=== PATIENT | female | born 1995 | race African-American/Black ===

== ENCOUNTER 2021-01-09 21:18 | Emergency (ER) | payer OTHER ==
[~2021-01-09] VITALS: Ht 170.2 cm; Wt 97.1 kg
[2021-01-09 22:54] LABS: URINE BILIRUBIN NEGATIVE (Negative); URINE BLOOD NEGATIVE (Negative); URINE CLARITY CLEAR; URINE COLOR YELLOW; URINE GLUCOSE-RANDOM* NEGATIVE (Negative); URINE KETONES NEGATIVE (Negative); URINE LEUKOCYTES-REFLEX NEGATIVE (Negative); URINE NITRITE-REFLEX NEGATIVE (Negative); URINE PROTEIN (DIPSTICK) NEGATIVE (Negative); URINE SPECIFIC GRAVITY <= 1.005 (1.005-1.035); URINE UROBILINOGEN 0.2 E.U./dl (0.2-1.0)
[2021-01-09 23:05] VITALS: BP 116/71
== END 2021-01-09 23:06 | disposition home or self-care (01) ==
LOC: ER 21:18
PROVIDERS: Nurse Practitioner Family
DX: N89.8 Other specified noninflammatory disorders of vagina (principal); Z90.89 Acquired absence of other organs